=== PATIENT | female | born 1990 | race Caucasian/White ===

== ENCOUNTER 2019-01-05 16:51 | Emergency (ER) | payer OTHER ==
[~2019-01-05] VITALS: Ht 157.5 cm; Wt 69.9 kg
--- NOTE | 2019-01-05 16:56 | NUR ---
PT AMBULATED TO BED 12.
[2019-01-05 16:59] VITALS: BP 140/86
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
--- NOTE | 2019-01-05 18:42 | NUR ---
PT IS TAKING TO CT SCAN VIA WHEELCHAIR ASSISTED BY TASTE TESTER.
--- NOTE | 2019-01-05 19:00 | NUR ---
PT HAS BEEN BROUGHT BACK FROM CT SCAN VIA WHEELCHAIR ASSISTED BY PERSONNEL PSYCHOLOGIST.
[2019-01-05 19:12] VITALS: BP 132/79
--- NOTE | 2019-01-05 19:13 | NUR ---
Pt report given to SAIMA Loo. Transfer of care at this time.
--- NOTE | 2019-01-05 19:13 | NUR ---
REPORT RECEIEVED FROM GARO LANDAVERDE. PT SITTING IN BED RESTING COMFORTABLY. RECENTLY RETURNED FROM CT- PENDING RESULTS. PER GARO LANDAVERDE, REPORT WAS ALREADY MADE TO PD
--- NOTE | 2019-01-05 19:23 | NUR ---
Patient discharged BY DR AVILES. Written and verbal after care instructions given and explained. Patient alert, oriented and verbalized understanding of instructions. Ambulatory with steady gait. All questions addressed prior to discharge. ID band removed. Rx of NAPROSYN given.
== END 2019-01-05 19:23 | disposition home or self-care (01) ==
LOC: MED 16:51
DX: S19.9XXA Unspecified injury of neck, initial encounter (principal); S09.90XA Unspecified injury of head, initial encounter; F07.81 Postconcussional syndrome; F41.9 Anxiety disorder, unspecified; Y08.89XA Assault by other specified means, initial encounter; Y93.89 Activity, other specified; Y92.89 Other specified places as the place of occurrence of the external cause; Y99.8 Other external cause status
CPT/HCPCS: 70450; 72125; 81002; 81025; 99284